=== PATIENT | female | born 1980 | race Caucasian/White ===

== ENCOUNTER → 2017-07-15 | Outpatient (CLI) | payer BC ==
[2005-01-30 08:20] VITALS: TEMP 97.6
== END ==
LOC: COL.RAD 08:08
DX: S46.812A Strain of other muscles, fascia and tendons at shoulder and upper arm level, left arm, initial encounter (principal)
CPT/HCPCS: A9585; J3301; Q9967

== ENCOUNTER → 2020-12-14 | Outpatient (CLI) | payer BC ==
[2005-01-30 08:20] VITALS: TEMP 97.6
== END ==
LOC: MC.RAD 11:12
DX: Z12.31 Encounter for screening mammogram for malignant neoplasm of breast (principal); Z98.890 Other specified postprocedural states

== ENCOUNTER → 2022-03-19 | Outpatient (CLI) | payer BC ==
[2005-01-30 08:20] VITALS: TEMP 97.6
== END ==
LOC: MC.RAD 07:33
DX: Z12.31 Encounter for screening mammogram for malignant neoplasm of breast (principal)